=== PATIENT | male | born 1970 | race Hispanic/Latino ===

== ENCOUNTER 2019-09-21 15:21 | Inpatient (IN) | payer BC ==
[2019-09-21 16:31] VITALS: BMI 27.3
[2019-09-21] MEDS ORDERED: HYDROMORPHONE HCL 1 MG/ML INJ IV PRN (16:38)
[2019-09-21] MEDS ORDERED: ONDANSETRON 4 MG/2 ML VIAL IV PRN (16:38)
[2019-09-21] MEDS: Ringers Lactate 1,000 ML IV SCH (17:00)
[2019-09-21] MEDS: PIPER/TAZO/NS 3.375gm 3.375 GM/100 ML BAG IVPB SCH (17:37)
--- NOTE | 2019-09-21 17:44 | RAD REPORT ---
EXAM DESCRIPTION: RAD - Chest Single View - 09/21/2019 5:31 pm CLINICAL HISTORY: pre op COMPARISON: None TECHNIQUE: AP portable chest image was obtained 09/21/2019 5:31 pm . FINDINGS: Lungs are clear. Heart and vasculature are normal. No measurable pleural effusion and no p neumothorax. No acute bony abnormality seen. No acute aortic findings suspected. IMPRESSION: No acute cardiopulmonary process.
[2019-09-22] MEDS: PIPER/TAZO/NS 3.375gm 3.375 GM/100 ML BAG IVPB SCH ×3 (01:32→16:48)
[2019-09-22] MEDS: Ringers Lactate 1,000 ML IV SCH ×4 (01:33→19:05)
[2019-09-22 04:33] LABS: Absolute Lymphocytes (CBC) 1.3 K/uL (0.7-4.9); Basophils % 0.4 % (0-1.3); Hematocrit 42.1 % (39.6-49.0); Lymphocytes % 15.2 % (15.3-44.8); MPV 9.7 fL (7.6-11.3); RBC Red Blood Cell Count 4.69 M/uL (4.33-5.43)
[2019-09-22 04:54] LABS: Albumin 3.1 g/dL (3.4-5.0); Bilirubin Direct 0.3 mg/dL (0-0.2); Bilirubin Total 1.3 mg/dL (0.2-1.0); Potassium 3.9 mmol/L (3.5-5.1); Protein, Total 6.8 g/dL (6.4-8.2)
[2019-09-22] MEDS ORDERED: propofoL 200 MG/20 ML VIAL IV ONE (08:14)
[2019-09-22] MEDS ORDERED: dexAMETHasone 10 MG/ML VIAL ONE (08:14)
[2019-09-22] MEDS ORDERED: MIDAZOLAM HCL 2 MG/2 ML INJ ONE (08:14)
[2019-09-22] MEDS ORDERED: LIDOCAINE 2% MPF 5 ML VIAL ONE (08:15)
[2019-09-22] MEDS ORDERED: FENTANYL CITR 250 MCG/5 ML ONE (08:15)
[2019-09-22] MEDS ORDERED: ONDANSETRON 4 MG/2 ML VIAL ONE (08:18)
[2019-09-22] MEDS ORDERED: ROCURONIUM 50 MG/5 ML VIAL IV ONE (08:19)
--- NOTE | 2019-09-22 08:58 | RAD REPORT ---
EXAM DESCRIPTION: MRI - Cholangiogram - 09/22/2019 8:43 am CLINICAL HISTORY: elevated LFTs Abdominal pain COMPARISON: No comparisons FINDINGS: Three-dimensional MRCP was performed using maximum intensity projection reconstruction on the same work station. No intrahepatic biliary tree dilatation is seen. The common bile duct is normal caliber without evide nce of retained stone, stricture or mass. The pancreatic duct is not pathologically dilated. Several stones are present in the gallbladder. Gallbladder is mildly distended with mild pericholecys tic fluid. Trace fluid is seen the liver edge. IMPRESSION: Cholelithiasis with evidence of early acute cholecystitis. No biliary tree dilatation seen. No evidence of common bile duct stone.
[2019-09-22] MEDS ORDERED: Ringers Lactate 1,000 ML IV ONE (09:01)
[2019-09-22] MEDS ORDERED: BUPIVACAINE 0.5% PF 10 ML VIAL ONE (09:01)
[2019-09-22] MEDS ORDERED: GLYCOPYRROLATE 0.2 MG/ML SYR ONE (09:39)
[2019-09-22] MEDS ORDERED: KETOROLAC 30 MG/ML INJ ONE (10:03)
--- NOTE | 2019-09-22 10:05 | P.OP ---
Behavioral Health Tech: Amy QUACH Preoperative diagnosis: Acute Cholecystitis and Cholelithiasis Postoperative diagnosis: same Primary procedure: Lap Juliet Anesthesia: Gen Estimated blood loss: min Specimen: GB Findings: as above Complications: None Transferred to: Recovery Room Condition: Good
[2019-09-22] MEDS ORDERED: HYDROCODONE/APAP 7.5/325 MG TAB PO PRN (10:25)
--- NOTE | 2019-09-22 11:37 | EKG ---
Test Date: 2019-09-21 Test Time: 17:21:22 [employer] Worker: MEASUREMENT RESULTS: Intervals: Rate: 60 IA: 144 QRSD: 84 QT: 410 QTc: 410 [place]: P: 5 IA: 144 QRS: 37 T: 31 INTERPRETIVE STATEMENTS: Normal sinus rhythm ST elevation, consider early repolarization, pericarditis, or injury Abnormal ECG No previous ECG available for comparison Electronically Signed On 09-22-19 11:34:59 CDT by Conrad Mak
--- NOTE | 2019-09-22 13:36 | PREOPHP ---
Date of Admission: 09/21/2019 Reason: Abdominal pain. History Of Present Illness: The patient is a 49-year-old gentleman, who awoke yesterday morning with a right upper quadrant pain and epigastric pain associated with mild nausea, but no vomiting. No di arrhea or constipation. No blood in his stool. No dysuria or hematuria. No sore throat, runny nose , cough, headaches, or dizziness. No chest pain. No fever or chills. Patient states that he had a similar episode 2 weeks ago. He did have some [place] food prior to this episode. Review of Systems: Otherwise unremarkable. Past Medical History: Negative. Past Surgical History: Negative. Allergies: NO ALLERGIES. Social History: Does not smoke. Drinks occasionally. Family History: Significant for diabetes and heart disease in the father. Physical Examination: Vital Signs: Stable. He is afebrile. He is awake, alert, and oriented x3. Head and Neck: Cranial nerves 2 through 12 are grossly within normal limits. No neck masses. No JV D. No icterus. Throat clear. Neck supple. Chest: Clear. Heart: S1 and S2. Abdomen: Soft, nondistended. Positive bowel sounds. Positive right upper quadrant tenderness. No rebound, rigidity, or guarding. Extremities: Adequately perfused. Nontender. Neuro: Nonfocal. Diagnostic Data: Showed mild elevation of the LFTs. MRCP showed no stones in the common bile duct. There is a thickened gallbladder wall with some fluid consistent with acute cholecystitis and cholel ithiasis, and CT confirms that done it out yesterday. Assessment: Acute cholecystitis and cholelithiasis. Plan: Admit n.p.o., IV fluid, IV antibiotic, to the OR for lap erwin, possible open. Patient unders tands the risks, benefits, and alternatives and agrees with procedure. RIGO/MODL Voice ID: [id number]
--- NOTE | 2019-09-22 20:57 | OP ---
Date of Procedure: 09/22/2019 Surgeon: Brandon Krishnamurthy MD Manager Assurance: PHILOMENA Contreras Preoperative Diagnosis: Acute cholecystitis and cholelithiasis. Postoperative Diagnosis: Acute cholecystitis and cholelithiasis. Procedure: Laparoscopic cholecystectomy. Estimated Blood Loss: Minimal. Specimen: Gallbladder. Findings: As above. Anesthesia: General. Complications: None. Disposition: Patient tolerated the procedure in stable condition, taken to Recovery in good general condition. Procedure In Detail: Patient was brought to the OR and placed in supine position. General anesthesi a was begun. Patient was prepped and draped in usual sterile fashion. Marcaine 0.5% was infiltrated locally. A #15 blade was used to make a 1 cm supraumbilical midline incision. Subcutaneous tissue divided. Fascia was identified and divided. #1 Vicryl stay suture was placed. Peritoneal cavity wa s entered with sharp and blunt dissection. A 12 mm trocar was placed into the peritoneal cavity unde r direct vision. Pneumoperitoneum was established. Then, three 5 mm trocars were placed, 1 in the e pigastrium just to the right of midline and 2 in the right subcostal region. Laparoscopy revealed a distended gallbladder with acute inflammation with some areas of necrosis and was distended and was a spirated of bile to reduce the volume and then the fundus retracted superiorly. Infundibulum was matthew ntified and retracted inferolaterally. Cystic duct and cystic artery were clearly identified with bl unt dissection. Clips were placed. Both structures were divided. Cautery was used to remove the ga llbladder from the liver bed. Bleeding on the liver bed was controlled with cautery. Gallbladder wa s retrieved through the umbilicus via an EndoCatch bag. Right upper quadrant was irrigated. Effluen t was clear. No evidence of bleeding or bile leakage appreciated. Subsequently, all trocars were re moved under direct vision. Stay sutures were tied to each other to reapproximate the fascial defect. Subcutaneous wounds were irrigated. Bleeding controlled with cautery. 3-0 chromic used to reappro ximate the subcutaneous tissue and carol used to closed the skin. Sterile dressing was applied. P atient was awakened and taken to Recovery in good general condition. /MODL Voice ID: [id number] Report ID: [id number]
[2019-09-23] MEDS: PIPER/TAZO/NS 3.375gm 3.375 GM/100 ML BAG IVPB SCH ×2 (00:51→08:10)
[2019-09-23] MEDS: Ringers Lactate 1,000 ML IV SCH ×2 (07:19→09:00)
[2019-09-23 10:03] VITALS: BP 117/74; TEMP 98
--- NOTE | 2019-09-23 10:13 | DS ---
Date of Discharge: 09/23/2019 Admitting Diagnosis: Acute cholecystitis and cholelithiasis. Discharge. Discharge Diangnosis: Acute cholecystitis and cholelithiasis. Discharge. Procedure Performed: Laparoscopic cholecystectomy. Hospital Course: Patient is a 49-year-old gentleman, underwent aforementioned surgery yesterday. He was kept on extra 24 hours for IV antibiotics as he had necrosis of the gallbladder. Patient today is tolerating diet, ambulating, pain controlled with p.o. pain medication, afebrile. Therefore patien t will be discharged to home. Disposition: Home. Condition: Stable. Discharge Instructions: Resume home medications and diet. Activity as tolerated. No heavy lifting. Remove outer dressing in a.m. Shower. Keep wound clean and dry. Follow up in my office 1 week. Call for appointment. Tylenol No. 3 one tablet p.o. q.4 p.r.n. pain, Cipro 500 mg p.o. q.12. /MODL Voice ID: [id number] Report ID: [id number]
[2019-09-23 10:26] VITALS: O2SAT 97
== END 2019-09-23 11:13 | disposition home or self-care (01) | DRG 419 ==
LOC: 2ND 16:01 → OBSVTOIN 09-22 16:16
PROVIDERS: ADMIT Surgery; ATTEND Surgery
PROC: 0FT44ZZ Resection of Gallbladder, Percutaneous Endoscopic Approach (ICD-10-PCS; principal; 2019-09-22 08:45)
DX: K80.00 Calculus of gallbladder with acute cholecystitis without obstruction (principal); K82.A1 Gangrene of gallbladder in cholecystitis
CPT/HCPCS: 36415; 71045; 74181; 80048; 80076; 82150; 83690; 85025; 88304; 93005; G0378; J1100; J2250; J2405; J2543; J2704; J3010; J7120